=== PATIENT | male | born 1995 | race African-American/Black ===

== ENCOUNTER 2021-12-19 19:49 | Emergency (ER) | payer OTHER ==
[~2021-12-19] VITALS: Ht 170.2 cm; Wt 110.2 kg
[2021-12-19 20:21] VITALS: BP 124/75
--- NOTE | 2021-12-19 20:26 | NUR ---
PT IN [facility] WAITING FOR BED 5.
--- NOTE | 2021-12-19 20:35 | NUR ---
pt moved to er bed 5 frpm rashad a
--- NOTE | 2021-12-19 20:45 | NUR ---
26YR OLD MALE BIB SELF C/O SI . PT STATED TO [facility] NURSE THAT "I WANT TO KILL MYSELF BY STICKING A PEN UP MY RECTUM" PT STATES HE HAS A PLAN AND THINKS DAILY ABOUT IT . DENIES WANTING TO HARM OTHERS . PT IS IN GOWN AND ALL ITEMS IN ROOM HAVE BEEN REMOVED. PT BELONGINGS BAGGED AND GIVEN TO SECURITY. HAS BEEN OFF MEDS FOR AWHILE DPRESSION SCHIZO ZYREXA
[2021-12-19 21:11] LABS: BASOPHILS % (AUTO) 0.9 % (0.0-2.0); EOSINOPHILS # (AUTO) 0.1 K/uL (0-0.4); EOSINOPHILS % (AUTO) 1.9 % (0.0-4.0); HEMATOCRIT 40.7 % (36-52); HEMOGLOBIN 13.4 g/dL (12.0-18.0); LYMPHOCYTES # (AUTO) 2.2 K/uL (2.0-11.5); LYMPHOCYTES % (AUTO) 39.6 % (20.5-51.1); MEAN CORPUSCULAR HEMOGLOBIN 29 pg (27-31); MEAN CORPUSCULAR HGB CONC 33 g/dL (33-37); MEAN CORPUSCULAR VOLUME 86.9 fL (80-94); MONOCYTES # (AUTO) 0.3 K/uL (0.8-1.0); MONOCYTES % (AUTO) 6.3 % (1.7-9.3); NEUTROPHILS # (AUTO) 2.8 K/uL (1.8-7.7); NEUTROPHILS % (AUTO) 51.3 % (42.2-75.2); PLATELET COUNT (AUTO) 242 K/uL (140-450); RED BLOOD CELL COUNT(AUTO) 4.68 MIL/uL (4.20-6.10); RED CELL DISTRIBUTION WIDTH 12.9 % (11.6-13.7); WHITE BLOOD COUNT (AUTO) 5.5 K/uL (4.8-10.8)
[2021-12-19 21:46] LABS: ACETAMINOPHEN < 0.5 ug/ml (10-30); ALBUMIN 3.8 g/dL (3.4-5.0); ANION GAP 11.6 (8-16); ASPARTATE AMINOTRANSFERASE 21 U/L (15-37); CARBON DIOXIDE 25.4 mmol/L (21-32); CHLORIDE 106 mmol/L (98-107); GFR ARICAN-AMERICAN 114 mL/min (>90); GLUCOSE 89 mg/dL (74-106); SALICYLATE < 2.8 mg/dL (2.8-20.0); SODIUM SERUM 139 mmol/L (136-145); TOTAL BILIRUBIN 0.4 mg/dL (0.0-1.0); UREA NITROGEN, BLOOD 18 mg/dL (7-18)
--- NOTE | 2021-12-19 21:47 | NUR ---
PT IN GOWN. ALL ITEMS FROM ROOM REMOVED FOR PATIENTS SAFTEY
--- NOTE | 2021-12-19 21:53 | NUR ---
PATIENT IN BATHROOM
--- NOTE | 2021-12-19 22:04 | NUR ---
URINE COLLECTED AND SENT TO LAB
[2021-12-19 22:06] LABS: APPEARANCE,URINE CLEAR (CLEAR); BILIRUBIN,URINE NEGATIVE (NEGATIVE); BLOOD, URINE NEGATIVE (NEGATIVE); COLOR,URINE YELLOW (YELLOW); LEUKOCYTE ESTERASE ,URINE NEGATIVE (NEGATIVE); NITRITE, URINE NEGATIVE (NEGATIVE); UGLUCOSE NEGATIVE (NEGATIVE)
[2021-12-19 22:16] LABS: BARBITURATE, URINE NEGATIVE ng/ml (NEG <=200); BENZODIAZEPINE, URINE NEGATIVE ng/mL (NEG <=200); CANNABINOID, URINE NEGATIVE ng/mL (NEG <=50); COCAINE, URINE NEGATIVE ng/mL (NEG <=300); OPIATE, URINE NEGATIVE ng/mL (NEG <=2000); PHENCYCLIDINE SCREEN,URINE NEGATIVE ng/mL (NEG <=25)
--- NOTE | 2021-12-19 22:19 | NUR ---
[employer] [employer] AT BEDSIDE EVAL FOR 5150 HOLD
--- NOTE | 2021-12-19 22:35 | NUR ---
OFFICER NICOLE DECLINED TO PUT A HOLD ON PT.
--- NOTE | 2021-12-19 22:52 | NUR ---
NO CHANGE IN CONDITION OF PATIENT. DR CHAVES REQUESTING TELEPSYCH TO EVAL PATIENT. RESP EVEN AND UNLABORED.
--- NOTE | 2021-12-19 23:18 | NUR ---
DR CHAVES AT BEDSIDE
--- NOTE | 2021-12-20 02:10 | NUR ---
RESP EVEN AND UNLABORED. PT RESTING IN BED . SIDE RAILS UP X2 HOB ELEVATED. PENDING TELEPSYCH .
--- NOTE | 2021-12-20 02:28 | NUR ---
COVID SWAB COLLECTED AND SENT TO LAB
--- NOTE | 2021-12-20 05:21 | NUR ---
PT ON TELEPSYCH
--- NOTE | 2021-12-20 05:35 | NUR ---
DR RALPH GRIFFITH PT ON TELEPSYCH. WILL PUT IN RECOMMENDATION FOR ADMISSION. PENDING ORDERS /NOTES
[2021-12-20] MEDS ORDERED: OLANZapine 5 MG ODT PO ONE (05:40)
--- NOTE | 2021-12-20 05:57 | NUR ---
PT REQUESTING TO SPEAK WITH DR ROSAS REGARDING MED ZYPREXA . REFUSING TO TAKE 5MG.
--- NOTE | 2021-12-20 06:12 | NUR ---
DR ROSAS TO START PT ON 15MG ZYPREXA TONIGHT.
[2021-12-20] MEDS ORDERED: OLANZapine 5 MG ODT SL ONE ×2 (07:15→17:00)
--- NOTE | 2021-12-20 07:30 | NUR ---
REPORT RECEIVED FROM BRADLEY NOWAK. ASSUMED CARE AT THIS TIME
--- NOTE | 2021-12-20 07:32 | NUR ---
PT AT REST AND SLEEPING R SIDE RECUMBANT. NO VISIBLE DISTRESS. RESPIRATIONS EVEN AND UNLABORED. PT IN VIEW, BED AT LOWEST POSITION, BED RAILS UP X2.
--- NOTE | 2021-12-20 08:15 | NUR ---
PT PROVIDED W/ BREAKFAST. PT AWAKE AND EATING IN BED
--- NOTE | 2021-12-20 10:00 | NUR ---
PT SWABBED FOR COVID(NOVEL). HANDED TO LAB
--- NOTE | 2021-12-20 13:52 | NUR ---
PT AMBULATORY TO RESTROOM
--- NOTE | 2021-12-20 13:54 | NUR ---
PT AMBULATORY BACK TO ROOM
[2021-12-20] MEDS ORDERED: OLANZapine 5 MG ODT PO SCH ×2 (17:00)
--- NOTE | 2021-12-20 18:20 | NUR ---
PT PROVIDED WITH DINNER. PT AWAKE AND EATING IN BED.
--- NOTE | 2021-12-20 19:30 | NUR ---
REPORT GIVEN TO LORELEI NOWAK. ALL QUESTION ANSWERED. TRANSFER OF CARE AT THIS TIME
--- NOTE | 2021-12-20 19:40 | NUR ---
Note aj in EDM - 12/20/21 at 1943 by OVIDIO PATIETN IN BED TALKING ON PHONE TO FRIENDS. DOESNT APPEAR TO BE IN DISTRESS. RR ARE EVEN AND UNLABORED. VSS. ALL NEEDS MET.
--- NOTE | 2021-12-20 19:40 | NUR ---
PATIETN SLEEPIN IN BED WITH EYES CLOSED. DOESNT APPEAR TO BE IN DISTRESS. RR ARE EVEN AND UNLABORED. ALL NEEDS MET.
--- NOTE | 2021-12-21 03:03 | NUR ---
PATIETN SLEEPIN IN BED WITH EYES CLOSED. DOESNT APPEAR TO BE IN DISTRESS. RR ARE EVEN AND UNLABORED. ALL NEEDS MET.
--- NOTE | 2021-12-21 07:09 | NUR ---
REPORT GIVEN TO ELIU CARRILLO. TRANSFER OF CARE.
--- NOTE | 2021-12-21 08:27 | NUR ---
PT HAVING BREAKFAST IN BED.
--- NOTE | 2021-12-21 12:15 | NUR ---
PT HAVING LUNCH.
--- NOTE | 2021-12-21 12:24 | NUR ---
PT WALKED TO THE BATHROOM.
--- NOTE | 2021-12-21 14:56 | NUR ---
TALKED TO SHRAVAN FROM [facility], PT WILL BE GOING TO BE PICKED UP AT 1900. HE WILL BE GOING TO [facility]. CALLED TO GIVE REPORT TO SULEIMAN RODRIGUEZ IN CHARGE BUT SHE WAS NOT AVAILABLE. WILL CALL BACK AT 4 PM [phone] EXT: [phone].
--- NOTE | 2021-12-21 16:20 | NUR ---
CALLED [facility] AND SPOKE WITH SULEIMAN HARRISON RN. WAS UNABLE TO GIVE REPORT BECAUSE THE PT WAS STILL NOT IN THE SYSTEM ON THEIR END. WILL CALL AT 1700.
--- NOTE | 2021-12-21 17:36 | NUR ---
CALLED GEM HARRISON RN AT [facility] AND GAVE REPORT. PT WILL BE PICKED UP AT 1900 AND TRANSPORTED .
[2021-12-21 18:52] VITALS: BP 139/97
--- NOTE | 2021-12-21 18:55 | NUR ---
Patient to be transferred to [facility]. Is being transferred due to NEED OF PSYCH EVALUATION. Receiving facility has accepting physician and available space. ER physician has signed transfer form. Patient or responsible republican has agreed to transfer and signed form. Patient belongings inventoried and will be sent with patient. Copy of nursing notes, lab reports, EKG, Physicians Orders and X-rays to be sent with patient. Report called to SULEIMAN RODRIGUEZ at receiving facility. [facility] ambulance service has been called for transfer. ETA is ONE HOUR.
--- NOTE | 2021-12-21 18:56 | NUR ---
[facility] BEDSIDE FOR PATIENT TRANSPORT.
--- NOTE | 2021-12-21 19:01 | NUR ---
The patient's care was reviewed and supervised by Sonal Lee RN.
== END 2021-12-21 18:52 ==
LOC: MED 19:49
DX: F20.9 Schizophrenia, unspecified (principal); Z20.822 Contact with and (suspected) exposure to COVID-19; R45.851 Suicidal ideations
CPT/HCPCS: 36415; 80053; 80305; 81003; 85025; 87426; 87635; 99285; C9803; G0480; G0482

== ENCOUNTER 2021-12-29 09:28 | Emergency (ER) | payer OTHER ==
[~2021-12-29] VITALS: Ht 190.5 cm; Wt 105.5 kg
[2021-12-29 09:30] VITALS: BP 139/96
--- NOTE | 2021-12-29 09:31 | NUR ---
SILVIO PADILLA, VIA [facility], ACCOMPANIED BY [employer] TO BED 07.
--- NOTE | 2021-12-29 09:51 | NUR ---
Penny rocha in [facility] - 12/29/21 at [email or web address] HELM AT BEDSIDE EVALUATING PT
--- NOTE | 2021-12-29 09:52 | NUR ---
DR HELM AT BEDSIDE
[2021-12-29 09:57] LABS: BASOPHILS % (AUTO) 0.4 % (0.0-2.0); EOSINOPHILS # (AUTO) 0.1 K/uL (0-0.4); EOSINOPHILS % (AUTO) 1.4 % (0.0-4.0); HEMATOCRIT 44.5 % (36-52); HEMOGLOBIN 14.6 g/dL (12.0-18.0); LYMPHOCYTES # (AUTO) 2.1 K/uL (2.0-11.5); LYMPHOCYTES % (AUTO) 38.8 % (20.5-51.1); MEAN CORPUSCULAR HEMOGLOBIN 28 pg (27-31); MEAN CORPUSCULAR HGB CONC 33 g/dL (33-37); MEAN CORPUSCULAR VOLUME 86.8 fL (80-94); MONOCYTES # (AUTO) 0.4 K/uL (0.8-1.0); MONOCYTES % (AUTO) 8.1 % (1.7-9.3); NEUTROPHILS # (AUTO) 2.8 K/uL (1.8-7.7); NEUTROPHILS % (AUTO) 51.3 % (42.2-75.2); PLATELET COUNT (AUTO) 231 K/uL (140-450); RED BLOOD CELL COUNT(AUTO) 5.13 MIL/uL (4.20-6.10); WHITE BLOOD COUNT (AUTO) 5.5 K/uL (4.8-10.8)
[2021-12-29] MEDS: OLANZapine 5 MG ODT SL ONE ×2 (10:32→13:36)
[2021-12-29 10:45] LABS: ACETAMINOPHEN 27.7 ug/ml (10-30)
--- NOTE | 2021-12-29 10:47 | NUR ---
COVID AND PCR SWAB COLLECTED AND SENT TO LAB
--- NOTE | 2021-12-29 10:56 | NUR ---
26YR OLD MALE BIB EMS C/O SI. PT WENT TO URGENT STATING "I WANT TO KILL MYSELF' PT IS A&OX4. HX OF SI. DENIES WANTING TO HARM OTHERS. PT IS ON A 5150 BY [employer] . Q15 SI ROUNDS BY STAFF. PT IN BED WITH BED SIDE RAILS UPX2. BED AT LOWEST POSITION. NKDA SI DEPRESSION
[2021-12-29 10:57] LABS: ALBUMIN 3.9 g/dL (3.4-5.0); ANION GAP 12.4 (8-16); ASPARTATE AMINOTRANSFERASE 22 U/L (15-37); CARBON DIOXIDE 24.7 mmol/L (21-32); CHLORIDE 107 mmol/L (98-107); GFR ARICAN-AMERICAN 114 mL/min (>90); GLUCOSE 97 mg/dL (74-106); POTASSIUM 4.1 mmol/L (3.5-5.1); SODIUM SERUM 140 mmol/L (136-145); TOTAL BILIRUBIN 0.4 mg/dL (0.0-1.0); UREA NITROGEN, BLOOD 15 mg/dL (7-18)
[2021-12-29 10:58] LABS: SALICYLATE < 2.8 mg/dL (2.8-20.0)
--- NOTE | 2021-12-29 11:11 | NUR ---
PT PROVIDED WITH MULTIPLE CUPS OF WATER, UNABLE TO PROVIDE URINE SAMPLE. Addendum: 12/29/21 at 1118 by [email or web address] PT WAS ABLE TO PROVIDE URINE AT THIS TIME. SAMPLE HANDED TO INSTALLATION SUPERINTENDENT.
--- NOTE | 2021-12-29 11:19 | NUR ---
URINE COLLECTED AND SENT TO LAB
--- NOTE | 2021-12-29 12:00 | NUR ---
COUNTER HELP AT BEDSIDE SPEAKING WITH PATIENT
[2021-12-29 12:07] LABS: BARBITURATE, URINE NEGATIVE ng/ml (NEG <=200); BENZODIAZEPINE, URINE NEGATIVE ng/mL (NEG <=200); CANNABINOID, URINE NEGATIVE ng/mL (NEG <=50); COCAINE, URINE NEGATIVE ng/mL (NEG <=300); OPIATE, URINE NEGATIVE ng/mL (NEG <=2000); PHENCYCLIDINE SCREEN,URINE NEGATIVE ng/mL (NEG <=25)
--- NOTE | 2021-12-29 12:19 | NUR ---
PT PROVIDED WITH LUNCH TRAY. PT EATING QUIETLY AT THIS TIME.
--- NOTE | 2021-12-29 12:39 | NUR ---
TELEPSYCH REQUEST PLACED. CONNECT ID: [id number]
--- NOTE | 2021-12-29 12:39 | NUR ---
PT MEDICALLY CLEARED BY DR HELM
[2021-12-29] MEDS ORDERED: DOCUSATE SODIUM 100 MG GELCAP PO STA (13:21)
[2021-12-29] MEDS ORDERED: OLANZapine 10 MG VIAL IM ONE (13:25)
[2021-12-29] MEDS ORDERED: WATER STERILE 10 ML MC ONE (13:32)
--- NOTE | 2021-12-29 15:22 | NUR ---
PT IS ALSEEP SIDE RAILS UP X2 . RESP EVEN AND UNLABORED. BED AT LOWEST POSITION. ALL NEEDS HAVE BEEN MET AT THIS TIME. WILL CONTINUE TO MONITOR PT AND OFFER SUPPORT WHEN NEEDED
--- NOTE | 2021-12-29 15:57 | NUR ---
TELEPSYCH SET UP AT BEDSIDE.
[2021-12-29] MEDS ORDERED: FLUoxetine 10 MG CAP PO SCH (16:20)
--- NOTE | 2021-12-29 16:23 | NUR ---
PACKET FAXED TO [facility].
--- NOTE | 2021-12-29 17:11 | NUR ---
PT REFUSED FLUOXETINE
--- NOTE | 2021-12-29 17:25 | NUR ---
PT SLEEPING . REFUSE TO TAKE PROZAC . SIDE RAILS UP X2 RESP EVEN AND UNLABORED
--- NOTE | 2021-12-29 19:31 | NUR ---
Packet has been faxed to the following facilities [facility] s/w [place]-no beds-packet received [facility]
--- NOTE | 2021-12-29 19:40 | NUR ---
PT STATES HE IS HUNGRY. PT ATE AT 6 PM , [employer]. PROVIDED PT WITH A SANDWHICH CRACKERS AND SODA. PT EATING QUIETLY IN BED.
--- NOTE | 2021-12-29 19:48 | NUR ---
SPOKE TO YEFRI ALFREDO AT [facility]. ACCEPTED BY DR. AHUMADA. PT WILL GO TO INTAKE . REPORT TO SAYDA
--- NOTE | 2021-12-29 20:00 | NUR ---
PT APPEARS TO BE MASTURBATING UNDERNEATH BLANKETS.
--- NOTE | 2021-12-29 20:30 | NUR ---
[facility] TRANSPORT AT BEDSIDE
[2021-12-29 20:40] VITALS: BP 136/87
--- NOTE | 2021-12-29 20:40 | NUR ---
PT TAKEN BY [facility] TRANSPORT TO [facility].
--- NOTE | 2021-12-29 20:40 | NUR ---
Patient to be transferred to [facility]. Is being transferred due to HIGHER LEVEL OF CARE 5150. Receiving facility has accepting physician and available space. ER physician has signed transfer form. Patient or responsible constitution party has agreed to transfer and signed form. Patient belongings inventoried and will be sent with patient. Copy of nursing notes, lab reports, EKG, Physicians Orders and X-rays to be sent with patient. Report called to SAYDA at receiving facility. S ambulance service has been called for transfer. ETA is 10 MIN.
--- NOTE | 2021-12-29 20:45 | NUR ---
The patient's care was reviewed and supervised by Isa Rodriguez RN.
[2021-12-29] MEDS ORDERED: OLANZapine 5 MG ODT PO SCH (21:00)
--- NOTE | 2021-12-30 13:13 | NUR ---
DC PLANNING PATIENT IS A 26 YEAR OLD MALE ADMITTED TO THE [facility]/ED ON 12/29/2021. DUE TO DTS/SI PATEINT WALK INTO AN URGENT CARE STATING THAT HE IS HAVING SUICIDAL IDEATION WITH A PLAN TO KILL HIM SELF HOWEVER UNABLE DESCRIBED HIS PLAN" PATIENT HAS NO SIGNIFICANT MEDICAL HISTORY. SW MEET WITH PATIENT AT BEDSIDE TO DISCUSS AND GATHER HIS COLLATERAL INFORMATION. PATIENT WAS AWAKE AND ALERT, ABLE TO PROVIDE SOME INFORMATION SINCE HE SEEMS TO BE A POOR HISTORIAN AND CONFUSED. PER PATIENT HE REPLY TO SOME OF THE QUESTIONS DURING THE ASSESTMENT " I DO NOT KNOW, ICAN NOT THINK" PER PATIENT HE LIVES IN [place] WITH HIS BROTHER AND AND FAMILY. PATIENT STATED THAT HE WAS AND HAS A DAUGHTER BUT RECENTLY GOT . PER PATIENT HIS BROTHER ABDIFATAH CARROLL IS HIS EMERGENCY CONTACT AND HIS MEDICAL DECISION MAKER. PATIENT REPORTED NOT HAVING AD.D. AND WAS NOT INTERESTED ON GETTING INFORMATION FORMS PROVIDED BY SW. PATIENT STATED FEELING DEPRESSED AND ANXIOUS FOR ABOUT 2 WEEKS AND NOT HAVING ANY MENTAL HEALTH PROVIDERS. SW ALSO ASK PATIENT IF THERES IS HX OF SUBSTANCE ABUSE PATIENT STATED YES HOWEVER' REPORTED BEEN CLEAN AND SOBER OVER A PERIOD OF A MONTH. PATIENT REPORTED NOT TAKING ANY MEDICATIONS AT THE THIS TIME AND NOT HAVING NEED FOR DME SINCE HE IS ABLE TO BE INDEPENDENT. SW PROVIDED PATIENT WITH RESOURCES TO SUBSTANCE ABUSE AND MENTAL HEALTH SERVICES AND EXPLAINED TO PATIENT THE PROCESS OF 5150 HOLD AND PSYCH PLACEMENT SEARCH. PATIENT UNDERSTOOD AND THANKED SW FOR THE RESOURCES. SW WILL FOLLOW UP NEEDED.
== END 2021-12-29 20:40 ==
LOC: MED 09:28
DX: R45.851 Suicidal ideations (principal); Z20.822 Contact with and (suspected) exposure to COVID-19; F29 Unspecified psychosis not due to a substance or known physiological condition
CPT/HCPCS: 36415; 80053; 80305; 85025; 87426; 87635; 99285; C9803; G0480; G0482; J3490